=== PATIENT | female | born 1955 | race Caucasian/White ===

== ENCOUNTER → 2023-05-09 06:25 | Day surgery (SDC) | payer MEDICARE, OTHER, SELFPAY | LOC: GI 06:25 | PROVIDERS: ATTENDING PHYSICIAN Specialist | DX: Z12.11 Encounter for screening for malignant neoplasm of colon (principal); K57.30 Diverticulosis of large intestine without perforation or abscess without bleeding; Z86.010 Personal history of colon polyps; Z98.0 Intestinal bypass and anastomosis status; Z98.890 Other specified postprocedural states | CPT/HCPCS: 45378 ==

== ENCOUNTER 2023-05-30 13:50 | Emergency (ER) | payer MEDICARE, OTHER, SELFPAY ==
[2023-05-30 13:52] VITALS: BP 155/84
[2023-05-30 14:23] LABS: % Basophils 0.5 % (0-2); % Eosinophils 1.4 % (0-6); % Immature Granulocytes 0.2 % (0-0.5); % Lymphocytes 31.1 % (20.5-51.1); % Monocytes 5.1 % (1.7-9.3); % Neutrophils 61.7 % (42.2-75.2); Absolute Basophils 0.1 10^3/uL (0-0.2); Absolute Eosinophils 0.1 10^3/uL (0-0.7); Absolute Monocytes 0.5 10^3/uL (0.1-0.6); Absolute Neutrophils 5.9 10^3/uL (1.4-6.5); Hematocrit 41.7 % (37.0-47.0); Hemoglobin 14.2 g/dL (12.0-16.0); Mean Corp Hgb Conc. 34.1 g/dL (33.0-37.0); Mean Corpuscular Hgb 28.8 pg (27.0-31.0); Mean Corpuscular Volume 84.6 fL (81.0-99.0); Mean Platelet Volume 9.7 fL (7.4-10.4); Nucleated Red Blood Cells % 0 %; Platelet Count 267 10^3/uL (130-400); Red Blood Cell Count 4.93 10^6/uL (4.20-5.40); Red Cell Dist. Width 14.1 % (11.5-14.5); White Blood Cell Count 9.6 10^3/uL (4.8-10.8)
[2023-05-30 14:37] LABS: ALT (SGPT) 25 U/L (0-35); AST (SGOT) 36 U/L (14-36); Albumin 4.8 g/dl (3.5-5.0); Alkaline Phosphatase 87 U/L (38-126); Blood Urea Nitrogen 12 mg/dl (7-17); Calcium 9.2 mg/dl (8.4-10.2); Carbon Dioxide 26 mmol/L (22-30); Chloride 97 mmol/L (98-107); Glucose 104 mg/dl (70-99); Lipase 67 U/L (23-300); Potassium 3.7 mmol/L (3.5-5.1); Sodium 131 mmol/L (135-145); Total Bilirubin 0.5 mg/dl (0.2-1.3); Total Protein 7.7 g/dl (6.3-8.2); eGFR > 60.00
[2023-05-30 14:59] VITALS: BMI 35.2
[2023-05-30] MEDS: OMNIPAQUE 50 ML PO (15:46)
[2023-05-30] MEDS: TORADOL 15 MG IV (15:46)
--- NOTE | 2023-05-30 16:02 | ED.GENMED ---
History of Present Illness
General
Chief Complaint: Abdominal Pain
Source: patient
Exam Limitations: none
Time Seen by Provider: 05/30/23 14:57
Nursing documentation reviewed up to this point in time: agreed with
Travel History
Have you had any contact with someone who has COVID-19?: No
Do you have any symptoms of coronavirus? Fever > 100 degrees, chills, cough, shortness of breath, sore throat, loss of taste or smell, muscle aches, or headache?: No
History of Present Illness
History of Present Illness:
67 y/o F with h/o HTN, diverticulitis
had previous abd surgery for ruptured appe (had a ileoceccal resection) remomtely
says that last week she had some periummbilcial pain, soreness, no lump
she says it was pretty cosntant and worse with bending over
pt then today noticed some redness from her umbilicus and some bloody drainage and called her PCP and was told to go to the ER
she has no known h/o umbilical hernia
says she has not had an incision through her naval
pt has been taking tylenol for pain
no urinary symptoms, fever, chills, constipation, diarrhea
Past History
Past History
ED Past Medical History: None; Negative Asthma, HTN, Hypercholesterolemia or NIDDM
ED Past Surgical History: None
Social History
Tobacco: Non-smoker
Alcohol: Occasional
Personal:
Living: with family
Review of Systems
Review of Systems
Allergies reviewed?: Yes
All Other Systems: Not applicable
Phy Exam
Physical Exam
Physical Exam:
GENERAL: Alert , in no apparent distress
EYE: pupils equal and reactive
NECK: Supple
CARDIAC: Regular rate and rhythm, no edema
LUNGS: Clear breath sounds bilaterally, no acute respiratory distress, no wheezes/rales/rhonchi, occ cough
ABDOMEN: Soft, MILD LOWER abdominal tendneress;
SMALL AMOUNT OF redness in the umbilicus; no discharge, no r/g, no cvat, normal bowel sounds
NEUROLOGICAL: Alert and oriented, no focal neuro deficits
SKIN: Warm and dry, skin intact.
MUSCULOSKELETAL: No edema, well perfused.
PSYCH: Normal and appropriate interaction.
Course
Orders/Labs/Results
Orders:
Orders
05/30/23 14:02
Complete Blood Count/With Diff Urgent
Comprehensive Metabolic Panel Urgent
Lipase Urgent
05/30/23 15:37
CT Abd/pel W Iv And Oral Contr Urgent
Comment: h/o partial bowel resection
Reason For Exam: lower abd pain, discharge from umbilicus
Iohexol [Omnipaque] See Protocol PO NOW STA
Ketorolac [Toradol] 15 mg IV NOW STA
05/30/23 15:50
Urinalysis Reflex To Culture Urgent
Date Specimen was Collected: 05/30/23
Time Specimen was Collected: 15:40
05/30/23 19:10
Amoxicillin 875 mg/Clav 125 mg [Augmentin 875 mg/125 mg] 1 tablet PO NOW STA
Abnormal Lab Results
05/30/23
14:02
Sodium 131 L mmol/L
(135-145)
Chloride 97 L mmol/L
(98-107)
Glucose 104 H mg/dl
(70-99)
05/30/23 14:02
05/30/23 14:02
Vital Signs
Initial and Last Documented VS:
Initial Vital Signs
Temp Pulse Resp BP Pulse Ox
99.2 F 87 18 155/84 98
05/30/23 13:52 05/30/23 13:52 05/30/23 13:52 05/30/23 13:52 05/30/23 13:52
Last Documented Vital Signs
Temp Pulse Resp BP Pulse Ox
97.6 F 82 16 136/81 99
05/30/23 18:48 05/30/23 18:48 05/30/23 18:48 05/30/23 18:48 05/30/23 18:48
MDM/Problems Addressed
Differential Diagnosis Includes:
CELLULITIS, FISULA, ABSCESS,DIVTERICULTIS
MDM/Problems Addressed:
67 Y/O F with h/o dvierticultis, thn
had small resection secondary to perf appe in epast
has had some abd pain since last week
now lower abd and has some redness and a little bloody drainage from her belly button
she doesn't stick anything in it
no ongoin drainage
no fever
well appearing, mild lowre abdominla tenderness
very faint erythema just within the deep belly button and no surrounding erythema
no hernia palpated
labs reassuring
ct scan reviewed with patient
she has no collection or fistula
she does have diverticluosis
will cover with abx augmentin in case early divertculitis
the small area of redness may be celulitlis
warm compresses, abx and return precautions
*Critical Care Note
Total Time (30-74mins, 75-104mins- exclusive of procedures): Not Applicable
ED Attending Note
-
Portions of this chart may have been created with voice recognition software.� Occasional wrong word or��sound alike� substitutions may have occurred due to the inherent limitations of voice recognition software.
Discharge Plan
Departure
Patient Disposition: Home (Routine Discharge)
Date of Disposition: 05/30/23
Time of Disposition: 18:46
Patient with high blood pressure during this ER visit?: Yes
Condition: Fair
Covid-19: Not Applicable
Discharge Problem:
Diverticulosis, Umbilical pain, Cellulitis
Instructions: Cellulitis (Skin Infection), Adult (DC), Abdominal Pain
Prescriptions:
New
amoxicillin-pot clavulanate 875-125 mg tablet
1 tab PO Q12H Qty: 14 0RF
No Action
atenolol 25 MG tablet
25 mg PO DAILY
levothyroxine [Levoxyl] 100 MCG tablet
100 mcg PO DAILY
Vitamin B-6 200 MG tablet
200 mg PO DAILY
iywdbys-mbuxzzdvb-pwxm 1 EACH tablet
1 ea PO DAILY
citalopram 20 MG tablet
20 mg PO DAILY
ascorbic acid (vitamin C) [Vitamin C] 500 MG tablet
500 mg PO DAILY
esomeprazole magnesium [Nexium] 40 MG capsule,delayed release(DR/EC)
40 mg PO DAILY
hydrochlorothiazide 25 MG tablet
25 mg PO DAILY
coenzyme Q10 [Co Q-10] 100 MG capsule
100 mg PO DAILY
Martinic 1 EACH capsule
500 mcg PO DAILY
bupropion HCl 150 MG tablet extended release 24 hr
150 mg PO DAILY
Lactobacillus acidophilus 1 EACH tablet
10 mg PO DAILY
cholecalciferol (vitamin D3) [Vitamin D3] 1,000 UNIT tablet,chewable
1,000 unit PO BID
famotidine 10 mg Tablet
10 mg PO DAILY
meloxicam 15 mg Tablet
15 mg PO DAILY
Referrals:
Seda Shook DO [Family Provider] -
Activity Restrictions/Additional Instructions:
IT IS NOT CLEAR WHAT IS CAUSING YOUR ABDOMINAL PAIN
YOU HAD NO SIGN OF DIVERTICULITIS TODAY
YOUR URINE WAS NORMAL
YOUR SKIN DOES LOOK A LITTLE RED NEAR YOUR BELLY BUTTON
TRY AUGMENTIN TWICE A DAY FOR 7D AYS
CLEAR LIQUIDS FOR24 HOURS IN CASE YOU HAVE MILD DIVERTICULITIS
WATCH THE REDNESS FROM YOUR BELLY BUTTON CLOSELY
IF IT WORSENS, SEE YOUR DOCTOR OR RETURN
ALSO RETURN FOR: FEVER, DIARRHEA, SEVEREP AIN, VOMITING OR ANY CONCERNS.
Interventions
Interventions:
*Risk Screen - Suicide Last Done: 05/30/23 13:52
*General Assessment Last Done: 05/30/23 13:52
*Neglect/Abuse Screening Last Done: 05/30/23 13:52
ED- Fall Risk Assessment Last Done: 05/30/23 14:59
*ED COVID-19 Vaccine History Last Done: 05/30/23 13:52
*Nursing Disposition Last Done: 05/30/23 18:48
LM-Tphoma-Vmtgqmdpgh Assessment Last Done: 05/30/23 14:59
[2023-05-30 16:04] VITALS: BP 145/81
[2023-05-30 16:10] LABS: Urine Albumin Negative (Neg - Trace); Urine Bilirubin Negative (Negative); Urine Character Clear (Clear); Urine Color Straw; Urine Glucose Negative (Negative); Urine Ketone Negative (Negative); Urine Leukocyte Negative (Negative); Urine Nitrite Negative (Negative); Urine Occult Blood Negative (Negative); Urine Urobilinogen Negative (Neg - 1+)
--- NOTE | 2023-05-30 16:48 | EDRN ---
the pt is resting in stretcher in the lowest position, side rails up x1, HOB elevated, no s/s of distress, the pt denies needing anything at this time, awaiting for the pt to go to CT scan, will continue to monitor the pt closely
[2023-05-30 18:48] VITALS: BP 136/81
[2023-05-30] MEDS: AUGMENTIN 875 MG/125 MG 1 TABLET PO (19:18)
== END 2023-05-30 19:18 | disposition home or self-care (01) ==
LOC: EMR 13:50
PROVIDERS: Emergency Medicine; Physician Assistant; EMERGENCY PHYSICIAN Emergency Medicine; FAMILY PHYSICIAN Family Medicine
DX: R10.9 Unspecified abdominal pain (principal); K57.30 Diverticulosis of large intestine without perforation or abscess without bleeding; L03.311 Cellulitis of abdominal wall; I10 Essential (primary) hypertension; E03.9 Hypothyroidism, unspecified; F41.9 Anxiety disorder, unspecified; F32.A Depression, unspecified; Z98.0 Intestinal bypass and anastomosis status
CPT/HCPCS: 99285; 96374; 74177; 80053; 81003; 83690; 85025; Q9967

== ENCOUNTER → 2023-06-20 | Outpatient (REF) | payer MEDICARE, OTHER, SELFPAY | LOC: DHSLP | PROVIDERS: ATTENDING PHYSICIAN Internal Medicine; FAMILY PHYSICIAN Family Medicine | DX: G47.33 Obstructive sleep apnea (adult) (pediatric) (principal) | CPT/HCPCS: 95811 ==

== ENCOUNTER → 2024-08-25 11:32 | Outpatient (REF) | payer MEDICARE, OTHER, SELFPAY | LOC: RCS 11:32 | PROVIDERS: ATTENDING PHYSICIAN Nuclear Medicine Nuclear Cardiology; FAMILY PHYSICIAN Family Medicine | DX: R07.89 Other chest pain (principal); R06.02 Shortness of breath; Z82.49 Family history of ischemic heart disease and other diseases of the circulatory system; I10 Essential (primary) hypertension | CPT/HCPCS: 78452; 93017; A9500; J2785 ==

== ENCOUNTER → 2024-08-29 09:10 | Outpatient (REF) | payer MEDICARE, OTHER, SELFPAY | LOC: RCS 09:10 | PROVIDERS: ATTENDING PHYSICIAN Nuclear Medicine Nuclear Cardiology; FAMILY PHYSICIAN Family Medicine | DX: R07.89 Other chest pain (principal); R06.02 Shortness of breath; Z82.49 Family history of ischemic heart disease and other diseases of the circulatory system; I10 Essential (primary) hypertension | CPT/HCPCS: 93306 ==